=== PATIENT | female | born 1970 | race Caucasian/White ===

== ENCOUNTER 2017-09-14 12:54 | Emergency (ER) | payer OTHER ==
[~2017-09-14] VITALS: Ht 162.6 cm; Wt 99.8 kg
[~2017-09-14 12:54] MED LIST: ACETAMINOPHEN-1 EAC1 PO; AMBIEN 5 MG TABL5 M1 PO; BACTRIM DS TAB1 EAC1 PO; BACTRIM DS TAB1 EACH PO; CIPROFLOXACIN500 M1 PO; DARVOCET-N 1001 EACH PO; FLEXERIL PO; HTN MED; HYDROCODONE-AP1 EAC6 PO; HYDROCODONE-APA1 TA1 PO; IBUPROFEN 800800 MG PO; KEFLEX500 MG PO; LEXAPRO20 MG PO; LOMOTIL TABLET1 EACH PO; NORCO 5-325 TA1 EAC1 PO; NORCO 5-325 TA1 EACH PO; NORFLEX100 MG PO; ONDANSETRON HCL4 M2 PO; PERCOCET 5-3251 EACH PO; PERCOCET PO; SERTRALINE HCL25 M1 PO; SLEEP AID25 MG; TESSALON PERLE100 MG PO; TOPAMAX 25 MG T25 M1 PO; TOPROL XL25 MG PO; TRAMADOL 50 MG50 MG PO; ULTRAM 50MG TAB50 MG PO; ZANTAC 150MG T150 MG; ZANTAC 150MG T150 MG PO; ZOFRAN ODT4 MG PO
[2017-09-14] MEDS ORDERED: CYMBALTA20 MG PO (13:07)
[2017-09-14] MEDS ORDERED: HYDROCODONE-AP1 EAC6 PO (14:31)
[2017-09-14 14:36] VITALS: BP 154/76
== END 2017-09-14 14:36 | disposition home or self-care (01) ==
LOC: M.ERS 12:54
DX: M54.41 Lumbago with sciatica, right side (principal); M54.2 Cervicalgia; I10 Essential (primary) hypertension; Z85.528 Personal history of other malignant neoplasm of kidney; Z96.651 Presence of right artificial knee joint; W01.0XXA Fall on same level from slipping, tripping and stumbling without subsequent striking against object, initial encounter; Y93.89 Activity, other specified; Y92.89 Other specified places as the place of occurrence of the external cause; Y99.8 Other external cause status

== ENCOUNTER 2018-11-08 21:11 | Emergency (ER) | payer OTHER ==
[~2018-11-08] VITALS: Ht 160 cm; Wt 110.2 kg
[~2018-11-08 21:11] MED LIST changes: +CYMBALTA20 MG PO
[2018-11-08] MEDS ORDERED: VENLAFAXINE HCL75 MG PO (21:44)
[2018-11-08] MEDS ORDERED: OMEPRAZOLE20 M2 PO (21:44)
[2018-11-08] MEDS ORDERED: TOPIRAMATE50 MG PO (21:45)
[2018-11-08] MEDS ORDERED: AMBIEN 5 MG TABL5 M1 PO (21:45)
[2018-11-08] MEDS ORDERED: CLONIDINE1 EAC1 TRANSDERM (21:46)
[2018-11-08] MEDS ORDERED: NAPROSYN500 MG PO (21:59)
[2018-11-08] MEDS ORDERED: BACTRIM DS TAB1 EACH PO (21:59)
[2018-11-08 22:40] VITALS: BP 165/98
== END 2018-11-08 22:40 | disposition home or self-care (01) ==
LOC: M.ERS 21:11
DX: N61.0 Mastitis without abscess (principal); I10 Essential (primary) hypertension; Z90.710 Acquired absence of both cervix and uterus; Z96.651 Presence of right artificial knee joint; E66.01 Morbid (severe) obesity due to excess calories; Z68.41 Body mass index [BMI] 40.0-44.9, adult; Z85.43 Personal history of malignant neoplasm of ovary; Z85.528 Personal history of other malignant neoplasm of kidney

== ENCOUNTER 2018-11-27 14:17 | Emergency (ER) | payer OTHER ==
[~2018-11-27] VITALS: Ht 160 cm; Wt 104.3 kg
[~2018-11-27 14:17] MED LIST changes: +CLONIDINE1 EAC1 TRANSDERM; +NAPROSYN500 MG PO; +OMEPRAZOLE20 M2 PO; +TOPIRAMATE50 MG PO; +VENLAFAXINE HCL75 MG PO
[2018-11-27] MEDS ORDERED: NORCO 5-325 TA1 EACH PO ×2 (14:28→15:24)
[2018-11-27 15:57] VITALS: BP 110/68
== END 2018-11-27 15:58 | disposition home or self-care (01) ==
LOC: M.ERS 14:17
DX: M25.561 Pain in right knee (principal); E66.01 Morbid (severe) obesity due to excess calories; I10 Essential (primary) hypertension; Z90.710 Acquired absence of both cervix and uterus; Z68.41 Body mass index [BMI] 40.0-44.9, adult; Z96.651 Presence of right artificial knee joint; Z85.43 Personal history of malignant neoplasm of ovary; Z90.5 Acquired absence of kidney; Z85.528 Personal history of other malignant neoplasm of kidney

== ENCOUNTER 2019-04-12 14:13 | Emergency (ER) | payer OTHER ==
[~2019-04-12] VITALS: Ht 160 cm; Wt 95.3 kg
[2019-04-12] MEDS ORDERED: EFFEXOR XR150 MG PO (14:23)
[2019-04-12] MEDS ORDERED: ZANTAC 150MG T150 MG PO (14:23)
[2019-04-12] MEDS ORDERED: MUPIROCIN22 GM TOP (14:38)
[2019-04-12] MEDS ORDERED: AUGMENTIN 875-1 EACH PO (14:38)
[2019-04-12 14:49] VITALS: BP 125/70
== END 2019-04-12 14:51 | disposition home or self-care (01) ==
LOC: M.ERS 14:13
DX: J34.0 Abscess, furuncle and carbuncle of nose (principal); R22.0 Localized swelling, mass and lump, head; I10 Essential (primary) hypertension; E66.01 Morbid (severe) obesity due to excess calories; Z68.37 Body mass index [BMI] 37.0-37.9, adult; Z96.651 Presence of right artificial knee joint; Z90.710 Acquired absence of both cervix and uterus; Z85.43 Personal history of malignant neoplasm of ovary; Z85.528 Personal history of other malignant neoplasm of kidney; Z90.5 Acquired absence of kidney

== ENCOUNTER 2019-07-27 15:16 | Emergency (ER) | payer OTHER ==
[~2019-07-27] VITALS: Ht 162.6 cm; Wt 104.3 kg
[~2019-07-27 15:16] MED LIST changes: +AUGMENTIN 875-1 EACH PO; +EFFEXOR XR150 MG PO; +MUPIROCIN22 GM TOP
[2019-07-27] MEDS ORDERED: NAPROSYN500 MG PO (16:08)
[2019-07-27] MEDS ORDERED: NORCO 5-325 TA1 EAC1 PO (16:08)
[2019-07-27 16:22] VITALS: BP 122/54
== END 2019-07-27 17:22 | disposition home or self-care (01) ==
LOC: M.ERS 15:16
DX: S82.492A Other fracture of shaft of left fibula, initial encounter for closed fracture (principal); I10 Essential (primary) hypertension; E66.01 Morbid (severe) obesity due to excess calories; Z96.651 Presence of right artificial knee joint; Z90.710 Acquired absence of both cervix and uterus; Z68.39 Body mass index [BMI] 39.0-39.9, adult; Z85.528 Personal history of other malignant neoplasm of kidney; Z85.43 Personal history of malignant neoplasm of ovary; W01.0XXA Fall on same level from slipping, tripping and stumbling without subsequent striking against object, initial encounter; Y93.89 Activity, other specified; Y92.89 Other specified places as the place of occurrence of the external cause; Y99.8 Other external cause status

== ENCOUNTER 2020-05-02 02:24 | Emergency (ER) | payer OTHER ==
[~2020-05-02] VITALS: Ht 167.6 cm; Wt 99.8 kg
[2020-05-02] MEDS ORDERED: FLONASE 0.05%50 MCG NARES (03:21)
[2020-05-02] MEDS ORDERED: DIAZEPAM2 MG PO (03:21)
[2020-05-02 03:36] VITALS: BP 162/63
== END 2020-05-02 03:38 | disposition home or self-care (01) ==
LOC: M.ERS 02:24
DX: R42 Dizziness and giddiness (principal); I10 Essential (primary) hypertension; E66.01 Morbid (severe) obesity due to excess calories; Z68.35 Body mass index [BMI] 35.0-35.9, adult; Z96.651 Presence of right artificial knee joint; Z90.710 Acquired absence of both cervix and uterus; Z85.43 Personal history of malignant neoplasm of ovary; Z85.528 Personal history of other malignant neoplasm of kidney

== ENCOUNTER 2021-09-04 23:48 | Emergency (ER) | payer OTHER ==
[~2021-09-04] VITALS: Ht 170.2 cm; Wt 117.9 kg
[~2021-09-04 23:48] MED LIST changes: +DIAZEPAM2 MG PO; +FLONASE 0.05%50 MCG NARES
[2021-09-05 00:33] LABS: URINE BILIRUBIN NEGATIVE (Negative); URINE BLOOD TRACE (Negative); URINE COLOR YELLOW; URINE GLUCOSE-RANDOM NEGATIVE (Negative); URINE KETONES TRACE (Negative); URINE LEUKOCYTES 2+ (Negative); URINE NITRITE NEGATIVE (Negative); URINE PROTEIN NEGATIVE (Negative); URINE SPECIFIC GRAVITY 1.025 (1.005-1.030)
[2021-09-05 00:34] LABS: URINE CLARITY SL HAZY
[2021-09-05 00:46] LABS: AMORPHOUS URATES Few /LPF (None Seen); BACTERIA >30 Many /HPF (None Seen); CASTS None Seen /LPF (None Seen); MUCUS 4-6 Moderate strn/LPF (None Seen); SQUAMOUS 0-3 Few /LPF (0-3); URIC ACID CRYSTALS 4-10 Moderate /LPF (None Seen); URINE RBC 3-10 Few /HPF (0-2); URINE WBC 6-15 Few /HPF (0-5)
[2021-09-05 01:43] LABS: ABSOLUTE BASOPHILS 0.1 thou/uL (0.0-0.2); ABSOLUTE EOSINOPHILS 0.6 thou/uL (0.0-0.7); ABSOLUTE LYMPHOCYTES 2.2 thou/uL (0.8-5.3); ABSOLUTE MONOCYTES 0.4 thou/uL (0.0-1.2); ABSOLUTE NEUTROPHILS 4.7 thou/uL (1.6-8.1); BASOPHILS 0.8 %; LYMPHOCYTES 27.6 %; MCH 30.9 pg (26.0-34.0); MCHC 33.4 g/dL (28.0-37.0); MCV 92.5 fL (80.0-100.0); MONOCYTES 4.7 %; MPV 7.8 fl. (7.2-11.1); NUCLEATED RBCS 0 /100WBC; PLATELET COUNT* 198 thou/uL (150-400); POLYS 58.9 %; RBC 4.22 mil/uL (4.20-5.00); RDW-CV 14.5 % (10.5-14.5)
[2021-09-05 01:53] LABS: CALCIUM 9.8 mg/dL (8.5-10.1); CREATININE 0.7 mg/dL (0.6-1.3); POTASSIUM 4.2 mmol/L (3.5-5.1)
[2021-09-05] MEDS ORDERED: FLEXERIL PO (04:19)
[2021-09-05] MEDS ORDERED: MACROBID 100 M100 M1 PO (04:27)
[2021-09-05 04:29] VITALS: BP 175/67
== END 2021-09-05 04:29 | disposition home or self-care (01) ==
LOC: M.ERS 23:48
PROVIDERS: Emergency Medicine
DX: S93.402A Sprain of unspecified ligament of left ankle, initial encounter (principal); N39.0 Urinary tract infection, site not specified; I10 Essential (primary) hypertension; E66.01 Morbid (severe) obesity due to excess calories; Z90.710 Acquired absence of both cervix and uterus; Z98.890 Other specified postprocedural states; Z79.899 Other long term (current) drug therapy; W19.XXXA Unspecified fall, initial encounter; Y93.89 Activity, other specified; Y92.89 Other specified places as the place of occurrence of the external cause; Y99.8 Other external cause status